=== PATIENT | female | born 1965 | race Caucasian/White ===

== ENCOUNTER 2020-04-28 14:03 | Emergency (ER) | payer OTHER ==
[2020-04-28 14:30] VITALS: BP 117/71; PULSE 92; TEMP 97.1; BMI 27.1
[2020-04-28] MEDS ORDERED: morphine SULFATE 4 MG/ML VIAL IVPUSH ONE (14:49)
[2020-04-28] MEDS ORDERED: morphine SULFATE 4 MG/ML VIAL ONE (14:59)
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
[2020-04-28 15:50] LABS: BASO % 0.4 % (0-2.0); EOS % 0.8 % (0-4.5); HEMOGLOBIN 13.8 GM/dL (10.7-15.3); LYMPH % 15.6 % (8-40); MCH 33.6 pg (25.7-33.7); MCHC 33.7 g/dl (32.0-36.0); MEAN CELL VOLUME 99.7 fl (80-96); MEAN PLT VOLUME 8.1 fl (7.5-11.1); NEUT % 77.2 % (42.8-82.8); PLATELET COUNT 267 K/MM3 (134-434); RBC 4.11 M/mm3 (3.60-5.2); RDW 13.1 % (11.6-15.6); WHITE BLOOD COUNT 8.8 K/mm3 (4.0-10.0)
[2020-04-28 15:57] LABS: INR 0.98 (0.83-1.09); PROTHROMBIN TIME (PATIENT) 11.6 SEC (9.7-13.0)
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
[2020-04-28] MEDS: METHOCARBAMOL 500 MG TABLET PO ONE ×2 (16:04→16:48)
[2020-04-28 16:18] LABS: ALBUMIN 3.9 g/dl (3.4-5.0); BILIRUBIN,TOTAL 0.3 mg/dL (0.2-1); BLOOD UREA NITROGEN 21.5 mg/dL (7-18); CALCIUM 9.2 mg/dL (8.5-10.1); CREATININE 0.9 mg/dL (0.55-1.3); POTASSIUM 4.5 mmol/L (3.5-5.1); TOT PROT 7.6 g/dl (6.4-8.2)
[2020-04-28] MEDS ORDERED: METHOCARBAMOL 500 MG TABLET ONE (16:21)
--- OUTSIDE RECORDS SUMMARY | 2020-04-28 19:11 | XMS ---
:1965 Author Organization [facility] Care Team Providers Name Role Phone [facility], [facility] Unavailable Unavailable Re-disclosure Warning The records that you are about to access may contain information from federally- assisted alcohol or drug abuse programs. If such information is present, then the following federally mandated warning applies: This information has been disclosed to you from records protected by federal confidentiality rules (42 CFR part 2). The federal rules prohibit you from making any further disclosure of this information unless further disclosure is expressly permitted by the written consent of the person to whom it pertains or as otherwise permitted by 42 CFR part 2. A general authorization for the release of medical or other information is NOT sufficient for this purpose. The Federal rules restrict any use of the information to criminally investigate or prosecute any alcohol or drug abuse patient.The records that you are about to access may contain highly sensitive health information, the redisclosure of which is protected by Article 27-F of the [facility] Public Health law. If you continue you may haveaccess to information: Regarding HIV / AIDS; Provided by facilities licensed or operated by the [facility] Office of Mental Health; or Provided by the [facility] Office for People With Developmental Disabilities. If such information is present, then the following [facility] mandated warning applies: This information has been disclosed to you from confidential records which are protected by state law. State law prohibits you from making any further disclosure of this information without the specific written consent of the person to whom it pertains, or as otherwise permitted by law. Any unauthorized further disclosure in violation of state law may result in a fine or halfway sentence or both. A general authorization for the release of medical or other information is NOT sufficient authorization for further disclosure. Encounters Encounter Providers Location Date Indications Data Source(s ) Outpatient Attender: [id number] 09/23/2019 [facility] 01:11:33 PM Care Noreen ruiz) EST Patient admitted. Insurance Providers Payer name Policy type Policy ID Covered Covered green party's Policy P earnest / Coverage green party ID relationship to [facility] [employer] type [place] BOBBI [id number] HEALTH NON CAP SELF PAY SP INSURANCE Social History Code Duration Value Status Description Data Source(s ) Smoking Unknown if ever completed Unknown if ever Markel Mendez smoked [facility]
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
== END 2020-04-28 21:49 | disposition home or self-care (01) ==
LOC: JER 14:03
PROC: 3E023NZ Introduction of Analgesics, Hypnotics, Sedatives into Muscle, Percutaneous Approach (ICD-10-PCS; principal; 2020-04-28)
DX: T14.8XXA Other injury of unspecified body region, initial encounter (principal); V89.2XXA Person injured in unspecified motor-vehicle accident, traffic, initial encounter
CPT/HCPCS: 36415; 70450-TC; 71046-TC-FY; 71260-TC; 72125-TC; 72128-TC; 72131-TC; 73523-TC-FY; 74177-TC; 80053; 82962; 85025; 85610; 85730; 86850; 86900; 86901; 99285-25; Q9967